=== PATIENT | male | born 1980 | race Caucasian/White ===

== ENCOUNTER 2018-05-13 13:02 | Emergency (ER) | payer OTHER ==
--- NOTE | 2018-05-13 14:20 | XRAY Report ---
Procedure Date: 05/13/2018 Accession Number: [id number] / [id number] Procedure: XR - Chest 2 View X-Ray CPT Code: 19203 FULL RESULT: EXAM: CHEST RADIOGRAPHY EXAM DATE: 05/13/2018 02:08 PM. CLINICAL HISTORY: Cough x 4 days. COMPARISON: None. TECHNIQUE: 2 views. FINDINGS: Lungs/Pleura: No dense consolidation. No large effusion or pneumothorax. No pulmonary edema. Mediastinum: Heart and mediastinal contours are unremarkable. Other: None. IMPRESSION: No acute radiographic pulmonary abnormalities. RADIA
--- NOTE | 2018-05-13 15:05 | ED Physician Documentation ---
PD HPI URI - Stated complaint Stated Complaint: COUGH - Chief complaint Chief Complaint: Heent - History obtained from History obtained from: Patient - History of Present Illness Timing - onset: How many days ago (5) Timing duration: Days (5) Timing details: Gradual onset, Still present Associated symptoms: Nasal congestion, Rhinorrhea, Sore throat, Dry cough, Dyspnea Contributing factors: Sick contact (3 year old daughter sick with viral pneumonia) Improves by: Rest Worsened by: Activity Similar symptoms before: Diagnosis (pneumonia as a child) Recently seen: Not recently seen - Additional information Additional information: 37-year-old male with a five-day history of cough and congestion has some tightness to his chest as well and feels like he is not getting a full deep breath. He has not used in an inhaler previously. Review of Systems Constitutional: denies: Fever Eyes: denies: Decreased vision Ears: denies: Ear pain Nose: reports: Rhinorrhea / runny nose, Congestion Throat: reports: Sore throat Cardiac: denies: Chest pain / pressure, Palpitations Respiratory: reports: Dyspnea, Cough, Wheezing GI: denies: Abdominal Pain, Nausea, Vomiting : denies: Dysuria, Frequency PD PAST MEDICAL HISTORY - Past Medical History Past Medical History: No Cardiovascular: None Neuro: None Endocrine/Autoimmune: None GI: None HEENT: None Derm: None - Past Surgical History Past Surgical History: Yes - Present Medications Home Medications: Ambulatory Orders Medication Instructions Recorded Confirmed Albuterol Sulf [Ventolin Hfa 1 - 2 puffs INH Q4HR PRN #1 inhaler 05/13/18 Inhaler] Azithromycin [Zithromax] 250 mg PO DAILY #6 tablet 05/13/18 Benzonatate [Tessalon] 100 - 200 mg PO TID PRN #20 capsule 05/13/18 - Allergies Allergies/Adverse Reactions: Allergies Allergy/AdvReac Type Severity Reaction Status Date / Time No Known Drug Allergies Allergy Verified 05/13/18 13:21 - Social History Does the pt smoke?: No Smoking Status: Never smoker Does the pt drink ETOH?: No Does the pt have substance abuse?: No PD ED PE NORMAL - Vitals Vital signs reviewed: Yes (diastolic hypertension ) - General General: Alert and oriented X 3, No acute distress, Well developed/nourished - HEENT HEENT: Atraumatic, PERRL, EOMI, Other (erythema and rounding of the umbo bilaterally ) - Neck Neck: Supple, no meningeal sign, No bony TTP - Cardiac Cardiac: RRR, No murmur - Respiratory Respiratory: No respiratory distress, Other (diminished breath sounds bilaterally with fine wheeze. 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, No motor deficit, No sensory deficit, Normal speech Eye Opening: Spontaneous Motor: Obeys Commands Verbal: Oriented GCS Score: 15 - Psych Psych: Normal mood, Normal affect Results - Vitals Vitals: Vital Signs - 24 hr 05/13/18 05/13/18 13:17 15:17 Temperature 36.5 C Heart Rate 93 Respiratory 16 16 Rate Blood Pressure 144/92 H O2 Saturation 96 Oxygen O2 Source Room air - Rads (name of study) 2 veiw chest Radiology: Prelim report reviewed (Impression: No acute radiographic pulmonary abnormalities.), EMP read indepedently, See rad report PD MEDICAL DECISION MAKING - ED course Complexity details: reviewed results, re-evaluated patient, considered differential, d/w patient ED course: 37-year-old male previously healthy with reactive airway disease as well. He is given dexamethasone and a DuoNeb here in the emergency department and we will start him on some azithromycin and an inhaler. As well as some Tessalon. - Sepsis Event Vital Signs: Vital Signs - 24 hr 05/13/18 05/13/18 13:17 15:17 Temperature 36.5 C Heart Rate 93 Respiratory 16 16 Rate Blood Pressure 144/92 H O2 Saturation 96 Oxygen O2 Source Room air Departure - Departure Disposition: 01 Home, Self Care Clinical Impression: Otitis media Qualifiers: Otitis media type: suppurative Chronicity: acute Laterality: bilateral Recurrence: not specified as recurrent Spontaneous tympanic membrane rupture: without spontaneous rupture Qualified Code(s): H66.003 - Acute suppurative otitis media without spontaneous rupture of ear drum, bilateral Reactive airway disease Qualifiers: Asthma severity: mild Asthma persistence: intermittent Asthma complication type : uncomplicated Qualified Code(s): J45.20 - Mild intermittent asthma, uncomplicated Condition: Stable Instructions: ED Reactive Airway Disease, ED Otitis Media Acute Adult Follow-Up: [facility] [place] [Provider Group] Prescriptions: Albuterol Sulf [Ventolin Hfa Inhaler] 1 - 2 puffs INH Q4HR PRN #1 inhaler PRN Reason: Shortness Of Air/Wheezing Azithromycin [Zithromax] 250 mg PO DAILY #6 tablet Benzonatate [Tessalon] 100 - 200 mg PO TID PRN #20 capsule PRN Reason: Cough Forms: Activity restrictions
[2018-05-13] MEDS: IPRATROPIUM/ALBUTEROL 3 ML NEB INH STA (15:16)
[2018-05-13] MEDS: DEXAMETHASONE 10 MG/ML VIAL PO STA (15:35)
[2018-05-13 15:41] VITALS: BP 147/83
== END 2018-05-13 15:43 | disposition home or self-care (01) ==
LOC: ED 13:02
DX: H66.003 Acute suppurative otitis media without spontaneous rupture of ear drum, bilateral (principal); J45.20 Mild intermittent asthma, uncomplicated
CPT/HCPCS: 71046; 94640; 99283